=== PATIENT | female | born 1955 | race Caucasian/White ===

== ENCOUNTER 2019-03-19 09:00 | Outpatient (CLI) | payer BC ==
[2009-08-25 11:40] VITALS: BMI 27.4
== END 2019-03-19 10:00 | disposition home or self-care (01) ==
LOC: D.MAMMO 09:00
PROVIDERS: ATTEND Family Medicine
DX: Z12.31 Encounter for screening mammogram for malignant neoplasm of breast (principal)

== ENCOUNTER 2020-08-23 15:45 | Outpatient (CLI) | payer BC ==
[2009-08-25 11:40] VITALS: BMI 27.4
== END 2020-08-23 23:59 ==
LOC: D.MAMMO
PROVIDERS: ATTEND Family Medicine
DX: Z12.31 Encounter for screening mammogram for malignant neoplasm of breast (principal)